=== PATIENT | female | born 1930 | race Caucasian/White ===

== ENCOUNTER 2018-09-01 07:34 | Day surgery (SDC) | payer OTHER ==
[2018-09-01] MEDS: BETADINE OPTH PREP OP PRN ×2 (08:30→09:10)
[2018-09-01] MEDS: TETRACAINE 0.5% UNIT-DOSE OP PRN ×2 (08:30→09:10)
[2018-09-01] MEDS: CYCLOGYL 2% OPTH OP PRN ×3 (08:31→08:41)
[2018-09-01] MEDS ORDERED: BRIMONIDINE TARTRATE 0.2% OPTH SOL OP PRN (08:41)
[2018-09-01] MEDS ORDERED: LIDOCAINE 1% 20 ML MDV ID STA (08:41)
[2018-09-01] MEDS ORDERED: ZOFRAN 4 MG/2 ML IVP ONE (08:41)
[2018-09-01] MEDS: DEX-MOXI-KETOR OPTH INJ 1/0.5/0.4 MG/ML IO ONE ×2 (09:13→09:19)
[2018-09-01] MEDS: LIDOCAINE 1%/PHENYLEPHRINE 1.5% BSS (SURGERY) INTRAOCULA ONE ×2 (09:13→09:19)
[2018-09-01] MEDS: BSS WITH EPINEPHRINE OP ONE ×2 (09:13→09:19)
[2018-09-01] MEDS ORDERED: VERSED ONE (09:14)
[2018-09-01] MEDS ORDERED: SUBLIMAZE ONE (09:14)
[2018-09-01] MEDS ORDERED: TORADOL ONE (09:14)
[2018-09-01] MEDS ORDERED: DECADRON 4 MG/ML SDV ONE (09:14)
[2018-09-01 13:05] VITALS: TEMP 98.2
[2018-09-01 15:18] VITALS: BP 152/67
== END 2018-09-01 10:35 | disposition home or self-care (01) ==
LOC: SURG 07:34
PROVIDERS: ATTEND Ophthalmology
DX: H25.12 Age-related nuclear cataract, left eye (principal)